=== PATIENT | male | born 1985 | race African-American/Black ===

== ENCOUNTER 2018-10-30 09:31 | Emergency (ER) | payer OTHER ==
[~2018-10-30] VITALS: Ht 185.4 cm; Wt 107.5 kg
--- NOTE | 2018-10-30 09:45 | NUR ---
PT TO HAVE IV FOR MEDS, PT IN ROOM TEXTING ON PHONE AND ASKED FOR STAFF TO WAIT UNTIL FINISHED AND THEN WE CAN DO IV....
[2018-10-30] MEDS ORDERED: KETOROLAC TROMETHAMINE 30 MG/ML VIAL IV STA (09:49)
[2018-10-30] MEDS ORDERED: SODIUM CHLORIDE 0.9% 1000ML 1,000 ML IV SCH (10:00)
[2018-10-30] MEDS ORDERED: METOCLOPRAMIDE HCL 10 MG/2ML VIAL IV ONE (10:00)
--- NOTE | 2018-10-30 10:40 | Diagnostic Imaging Report ---
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 There is also fusion of a hypoplastic C1 posterior arch to the basiocciput. This results in an increased anterior atlantodens interval of 3.7 mm and mild basilar invagination with displacement of the cervicomedullary junction posteriorly and superiorly. No Chiari one malformation." Additional findings: 1. Mildly prominent pituitary gland may be physiologic. 2. 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 Otherwise, agree with preliminary report. Signed by: Dr. Micheal Camargo M.D. on 10/30/2018 4:39 PM ORIGINAL REPORT HEAD CT WITHOUT CONTRAST History: 33-year-old male with headache for 3 days Comparison studies: None Technique: Axial images were obtained from the skull base to the vertex. Coronal and sagittal reconstructions obtained from the axial data. Dose modulation, iterative reconstruction, and/or weight based adjustment of the mA/kV was utilized to reduce the radiation dose to as low as reasonably achievable. Findings: Scalp/skull: No abnormalities. No fractures, blastic or lytic lesions. Extra-axial spaces: No masses. No fluid collections. Brain sulci: Appropriate for age. Ventricles: Normal in size and configuration. No hydrocephalus. Parenchyma: No abnormal densities. No masses, hemorrhage, acute or chronic cortical vascular insults. 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 Posterior arch to the occiput. This results in an increased anterior atlantodens interval of 3.7 mm and mild basilar invagination with displacement of the brainstem posteriorly and superiorly. No Chiari one malformation. IMPRESSION: No acute abnormalities. 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 Preliminary report dictated by Dr. Chanelle Lozano, Neuroradiology Fellow. A final report by the attending radiologist will follow. Signed by: Chanelle Lozano MD on 10/30/2018 10:37 AM
== END 2018-10-30 10:54 | disposition home or self-care (01) ==
LOC: FSED 09:31
DX: R51 Headache (principal)
CPT/HCPCS: 70450; 99284; J1885; J2765